=== PATIENT | female | born 1960 ===

== ENCOUNTER 2025-05-28 12:53 | Outpatient (AMB) | payer BC, SELFPAY ==
--- NOTE | 2025-05-28 13:00 | A.OFFPC_ITS ---
Vital Signs 05/28/25 13:06 Height 5 ft 5.43 in Weight 193 lb BMI 31.7 BP 138/68 Blood Pressure Location Lt brachial Position Sitting Respiration 20 Pulse 73 Pulse Source Pulse Oximeter Temp 97.4 F Temp Source Temporal Artery Scan Pulse Oximetry (%) 98 Oxygen Delivery Method Room Air Intake Visit Reasons: Annual Bag Tester Required: No Accompanied by: Self / Same As Patient Allergies No Known Allergies Allergy (Verified 05/28/25 13:02) Medication List - Last Reconciled 05/28/25 by Starr Colon MD amlodipine 10 mg PO DAILY lisinopril-hydrochlorothiazide 20-12.5 mg 1 tab PO DAILY multivitamin 1 tab PO DAILY Tobacco use date assessed: 05/28/25 Fall risk assessment: 1 Fall in past year Last assessed Fall Risk: 05/28/25 Dental Screening Dental Screen Date: 05/28/25 Did you have a dental visit in the last 12 months?: Yes Did you have a dental problem in the last 6 months where you did not have access to dental care?: No Was dental information given to patient?: Patient has dentist HPI HPI Comments History of Present Illness Details The patient is a 65-year-old female presenting for a physical examination Peripheral edema: Ankle swelling has persisted, frequent, without dietary sodium contribution, worsens with standing and elevation mitigates it sometimes. Essential Hypertension: compliant with meds Prediabetes: Borderline A1C recognized, treatment initiation deferred, results pending. Was previously prescribed metformin but did not take it. Has also been on GLP 1 in the past briefly but stopped because of worsened back pain when she tried medication. Osteoarthritis: Chronic bilateral knee pain, aggravated by activity and weight. Obesity- has gained weight, activity limited by pain from knees Fall (recent history): Recent fall due to missed step, associated with knee instability and discomfort. Social History: - Retired from management, currently in loss mitigation with [employer] - Resides on the second floor - Reports decreased work-related physica l activity Health Maintenance had hysterectomy colonoscopy due in 3 years Review of Systems - General: Reports recent fall - Cardiovascular: no chest pain - Musculoskeletal: Reports knee pain, es pecially in the morning and upon using stairs Physical Exam General: NAD HEENT: right ear cerumen impaction Chest: CTABL. Card: normal s1, s2, soft murmur across precordium Abd: SNTND, +BS Extremities: no edema Neuro: AOX3 Msk: bilateral knee crepitus Assessment and Plan 1. Peripheral edema - Monitor kidney function, medication re view. Obtain ultrasound bilaterally 2. Essential Hypertension - continue current regimen 3. Prediabetes - Lab tests for glucose, potential metfo rmin initiation and possible wegovy for weight loss 4. Osteoarthritis - Low-impact exercise advised, consider knee x-rays. Discussion Notes I discussed the management of multiple chronic conditions with the patient, emphasizing the importance of routine monitoring and lifestyle adjustments. Educational discussions around the benefits of low-impact exercises such as swimming or aqua aerobics were provided to support weight management and reduce knee pain. The patient is advised to watch for changes, especially in case of swollen ankles, or exacerbated knee pain, and to contact me with any concerns. Patient Instructions - Wear compression stockings during the day. - Follow a reduced-sodium diet to help m anage swelling. - Engage in low-impact exercises, swimmi ng if possible. - Follow up for a potential x-ray of the knees. - Portal me in three weeks regarding any medication side effects if wegovy is initiated. - Watch for new or worsening symptoms an d seek care if needed. [facility] Medical History (Updated 05/28/25 @ 17:35 by Starr Colon MD) Routine adult health maintenance Bilateral swelling of feet and ankles Obesity (BMI 30.0-34.9) Bilateral knee pain Impaired fasting glucose Primary hypertension Surgical History (Updated 05/28/25 @ 13:15 by Starr Colon MD) H/O: hysterectomy History of colonoscopy (~11/01/17) Family History (Updated 05/28/25 @ 13:15 by Starr Colon MD) Other Cancer Diabetes mellitus Social History Housing: House Patient Tobacco Use Status: Former Tobacco user Years Smoked: 15 years e-Cigarette/Vaping Use: Never Used Second Hand Smoke Exposure: No service: No Current occupational status: employed Current occupation: [employer] Questionnaire PHQ-9 Over the last 2 weeks, how often have you been bothered by any of the following problems? 1. Little interest or pleasure in doing things: not at all 2. Feeling down, depressed, or hopeless: not at all 3. Trouble falling or staying asleep, or sleeping too much: not at all 4. Feeling tired or having little energy: not at all 5. Poor appetite or overeating: not at all 6. Feeling bad about yourself - or that you are a failure or have let yourself or your family down: not at all 7. Trouble concentrating on things, such as reading the newspaper or watching television: not at all 8. Moving or speaking so slowly that other people could have noticed. Or the opposite - being so fidgety or restless that you have been moving around a lot more than usual: not at all 9. Thoughts that you would be better off or of hurting yourself in some way: not at all Total score: 0 Depression Screening Interpretation: Negative Depression Screening Done: Yes 52059 - PHQ-9 Billing: Yes Source: Developed by Drs. Chaim Mcdaniel, Sudha Keating, Ramses Haddad and colleagues, with an educational paxton from [employer]. Thrive Questionnaire Date Thrive assessed: 05/28/25 I am a: Patient What is your living situation today?: I have a steady place to live Within the past 12 months, did the food you bought not last and you didn't have the money to get more?: Never true Within the past 12 months, did you worry whether your food would run out before you got money to buy more?: Never true Do you have trouble paying for medicines?: No Do you have trouble getting transportation to medical appointments?: No Do you have trouble paying your heating and electricity bill?: No Do you have trouble taking care of your child, family member or friend?: No Do you have trouble with day-to-day activities such as bathing, preparing meals, shopping, managing finances, etc.?: No Are you currently unemployed and looking for a job?: No Are you interested in more education?: No Please select the resources that you would like help with: None THRIVE Score: 0 AUDIT C Alcohol Use Questionnaire (AUDIT-C) 1. How often do you have a drink containing alcohol?: 2-4 times a month 2. How many drinks containing alcohol do you have on a typical day when you are drinking?: 1 or 2 Total Score: 2 MARY-7 AMB Questionnaire MARY-7 Date MARY - 7 assessed: 05/28/25 Feeling nervous, anxious, or on edge: 0 = Not at all Not being able to stop or control worryin = Nearly every day (just life) Worrying too much about different things: 0 = Not at all Being so restless that it is hard to sit still: 0 = Not at all Becoming easily annoyed or irritable: 0 = Not at all Feeling afraid as if something awful might happen: 0 = Not at all Source: Developed by Drs. Chaim Mcdaniel, Sudha Keating, Ramses Haddad and colleagues, with an educational paxton from [employer]. Physical exam (Primary Care) Vital Signs: Last Vital Signs Temp 97.4 F 05/28/25 13:06 Pulse 73 05/28/25 13:06 Resp 20 05/28/25 13:06 BP 138/68 05/28/25 13:06 Pulse Ox 98 05/28/25 13:06 Oxygen Delivery Method Room Air 05/28/25 13:06 BMI result Body Mass Index 31.7 Tobacco/Smoking Status: Tobacco use Status Tobacco use date assessed 05/28/25 05/28/25 13:08 Patient Tobacco Use Status Former Tobacco user 05/28/25 13:08 e-Cigarette/Vaping Use Never Used 05/28/25 13:08 PHQ-9: PHQ-9 Score PHQ-9: Total score 0 05/28/25 14:00 Depression Screening Interpretation: Negative Thrive Assessment: Date of Thrive Assessment Date Thrive assessed 05/28/25 05/28/25 14:00 Coding Level of Care Code Est Pt Prev Care >65y(42679) Diagnoses Primary hypertension I10 Impaired fasting glucose R73.01 Chronic pain of both knees M25.561; M25.562; G89.29 Chronicity: chronic Obesity (BMI 30.0-34.9) E66.9 Bilateral swelling of feet and ankles M25.471; M25.472; M25.474; M25.475 Routine adult health maintenance Z00.00 Additional Codes PHQ-9 - 22124 - PHQ-9 Billing: Yes ([id number]) Assessment & Plan Assessment & Plan (1) Primary hypertension: Code(s): I10 - Essential (primary) hypertension Category: Medical (2) Impaired fasting glucose: Code(s): R73.01 - Impaired fasting glucose Category: Medical (3) Bilateral knee pain: Code(s): M25.561 - Pain in right knee; M25.562 - Pain in left knee Category: Medical Qualifiers: Chronicity: chronic Qualified Code(s): M25.561 - Pain in right knee; M25.562 - Pain in left knee; G89.29 - Other chronic pain (4) Obesity (BMI 30.0-34.9): Code(s): E66.9 - Obesity, unspecified Category: Medical Plan: trial of wegovy, cannot try phentermine due to HTN (5) Bilateral swelling of feet and ankles: Code(s): M25.471 - Effusion, right ankle; M25.472 - Effusion, left ankle; M25.474 - Effusion, right foot; M25.475 - Effusion, left foot Category: Medical (6) Routine adult health maintenance: Code(s): Z00.00 - Encounter for general adult medical examination without abnormal findings Category: Medical Plan - Advise weight management, arthritis-friendly activities. - Conduct fasting labs, consider metformin initiation. - Recommend knee x-ray, use compression stockings. Orders: Orders Microalbumin, Random (w Creat) Today I10 - Essential (primary) hypertension, R73.01 - Impaired fasting glucose XR Knee Binu 3V Today M25.561 - Pain in right knee, M25.562 - Pain in left knee Pneumococcal 20 Immunization Today Z23 - Encounter for immunization Hemoglobin A1c Today I10 - Essential (primary) hypertension, R73.01 - Impaired fasting glucose Complete Blood Count Auto Diff Today I10 - Essential (primary) hypertension, R73.01 - Impaired fasting glucose Comprehensive Met. Panel Today I10 - Essential (primary) hypertension, R73.01 - Impaired fasting glucose US venous duplex LE BI Today M25.471 - Effusion, right ankle, M25.472 - Effusion, left ankle, M25.474 - Effusion, right foot, M25.475 - Effusion, left foot Medications: New pneumoc 20-randy conj-dip cr(PF) 0.5 mL IM ONCE 0.5 mL 0RF Z23 - Encounter for immunization semaglutide (weight loss) (Wegovy) administer weeks 1 through 4 of therapy 0.25 mg (0.5 mL) subcut QWEEK 2 mL 1RF
[2025-05-28 13:06] VITALS: BP 138/68; PULSE 73; RESP 20; TEMP 36.3; O2SAT 98; BMI 31.7
--- OUTSIDE RECORDS SUMMARY | 2025-05-28 15:36 | XMS_ITS | Encounter Summary ---
Author Organization [facility] Address [address] [place] [address] Care Team Providers Care Rug Setter Axminster Name Role Phone Starr Colon MD Primary Care Provider +1- [phone] Encounter Details Date Type Department Care Team (Latest Contact Info) Description 10/16/2024 Lab Requisition [facility] - Main Lab [address] [place] [address] Karolina Pickett MD [address] [phone] Encounter for gynecological examination (general) (routine) without abnormal findings Social History Tobacco Use Types Packs/Day Years Used Date Smoking Tobacco: Never Assessed Comments Unknown Sex and Gender Information Value Date Recorded Sex Assigned at Not on file Legal Sex Female 1:04 PM EST Gender Identity Not on file Sexual Orientation Not on file documented as of this encounter Plan of Treatment Not on file documented as of this encounter Procedures Procedure Name Priority Date/Time Associated Diagnosis Comments PAP SMEAR Routine 10/15/2024 12:00 AM EDT Encounter for gynecological examination (general) (routine) without abnormal findings documented in this encounter Results * Pap smear (10/15/2024 12:00 AM EDT) Interpretation Negative for intraepithelial lesion or malignancy 10/17/2024 3:57 PM EDT [facility] General Categorization Negative 10/17/2024 3:57 PM EDT [facility] Specimen Adequacy Satisfactory for evaluation 10/17/2024 3:57 PM EDT [facility] Pap Methodology Liquid Based Pap Test 10/17/2024 3:57 PM EDT [facility] Disclaimer The Pap test is a screening test which carries an inherent false negative rate. These test results should be correlated with the patient's clinical findings and history. This Pap test was processed using an automated screening system. Technical cytopathology services provided by [facility], at [address] [place] [address] (CLIA # [id number]/Meena Molina MD, Supervisor Stripping.) 10/17/2024 3:57 PM EDT [facility] Console Pap Interpretation Reported 10/17/2024 3:57 PM T [facility] Brushing/Spatula Vaginal structure / Unknown 10/15/2024 10/16/2024 7:38 AM EDT us Karolina Pickett MD LAB CYTOLOGY ORDERABLES Final Result [facility] [address] [place] [address], documented in this encounter Visit Diagnoses Diagnosis Encounter for gynecological examination (general) (routine) without abnormal findings documented in this encounter Care Teams Rug Setter Axminster Relationship Specialty Start Date End Date Starr Colon MD [address] [place] [address] PCP - General Internal Medicine 10/16/24 documented as of this encounter
--- OUTSIDE RECORDS SUMMARY | 2025-05-28 15:36 | XMS_ITS | Clinical Summary ---
Author Organization [address] Address [address] [place] [phone] Phone Care Team Providers Care Health Sciences Program Coordinator Name Role Phone Starr Colon MD Primary Care Provider +1- [phone] Surgical History Surgery Date Site/Laterality Comments HYSTERECTOMY Social History Tobacco Use Types Packs/Day Years Used Date Smoking Tobacco: Never Assessed Comments No Sex and Gender Information Value Date Recorded Sex Assigned at Not on file Legal Sex Female 1:04 PM EST Gender Identity Not on file Sexual Orientation Not on file Obstetrics History Para Term AB IAB SAB Ectopic Multiple Livin g Live Births 3 Last Filed Vital Signs Vital Sign Reading Time Taken Comments Blood Pressure - - Pulse - - Temperature - - Respiratory Rate - - Oxygen Saturation - - Inhaled Oxygen Concentration - - Weight 88.9 kg (196 lb) 10/17/2024 7:28 AM EDT Height 166.4 cm (5' 5.5 ) 10/17/2024 7:28 AM EDT Body Mass Index 32.12 10/17/2024 7:28 AM EDT Plan of Treatment Health Maintenance Due Date Last Done Comments Colorectal Cancer Screening: Colonoscopy 1960 Pneumococcal Vaccine: 50+ Years (1 of 1 - PCV) 2009 Zoster Vaccines (1 of 2) 2009 Cholesterol Screening (Lipid Panel) 06/21/2022 Hepatitis C Screening 06/21/2022 Osteoporosis Screening (Bone Density Screening) 06/21/2022 Social Influencers of Health Screening 06/21/2022 Falls Risk Assessment 2024 Depression Screening 07/24/2024 Hypertension/CHF/CAD Annual BMP Blood Test 10/17/2024 COVID-19 Vaccine (5 - 2025-26 season) 2025 02/03/2022, 06/01/2021, 11/17/2020, Additional history exists Influenza Vaccine (#1) 2025 , 05/20/2021, 04/23/2020, Additional history exists DTaP,Tdap,and Td Vaccines (2 - Td or Tdap) 04/15/2025 04/15/2015 Breast Cancer Screening 10/17/2026 10/18/19 25, 07/20/2023, 07/14/2022, Additional history exists RSV Immunization Adult Patients (1 - 1-dose 75+ series) 2034 HIB Vaccines Aged Out No longer eligi ble based on patient's age to complete this topic HPV Vaccines Aged Out No longer eligi ble based on patient's age to complete this topic Hepatitis A Vaccines Aged Out No long er eligible based on patient's age to complete this topic Hepatitis B Vaccines Aged Out No long er eligible based on patient's age to complete this topic IPV Vaccines Aged Out No longer eligi ble based on patient's age to complete this topic MMR Vaccines Aged Out No longer eligi ble based on patient's age to complete this topic Meningococcal ACWY Vaccine Aged Out N o longer eligible based on patient's age to complete this topic Meningococcal B Vaccine Aged Out No l onger eligible based on patient's age to complete this topic RSV Immunization Patients Under 20 months Aged Out No longer eligible based on patient's age to complete this topic Varicella Vaccines Aged Out No longer eligible based on patient's age to complete this topic Procedures Procedure Name Priority Date/Time Associated Diagnosis Comments MG MAMMO DIGITAL SCREENING W GILES BILAT Routine 10/17/2024 7:35 AM EDT Encounter for screening mammogram for malignant neoplasm of breast from Last 3 Months or Most Recently Relevant to Health Maintenance Results * MG Mammo Digital Screening w Giles bilat (10/17/2024 7:35 AM EDT) Anatomical Region Laterality Modality Breast Bilateral Mammography 10/22/2024 3:14 PM EDT Impressions 10/22/2024 3:17 PM EDT No evidence of breast malignancy. BI-RADS CATEGORY: 1 - NEGATIVE RECOMMENDATION: Screening bilateral mammogram is recommended in 1 year. [facility]ammo Location: [facility], [address] [place] [address], [id number], . -------- FINAL REPORT -------- Dictated By: Nithya Mccarty Dictated Date: 10/22/2024 15:14 ET Assigned Physician: Nithya Mccarty Reviewed and Electronically Signed By: Nithya Mccarty Signed Date: 10/22/2024 15:17 ET Workstation ID: [id number] Transcribed By: Self Edit Transcribed Date: 10/22/2024 15:14 ET Narrative 10/22/2024 3:17 PM EDT CLINICAL: 64 years old, Female, routine annual exam. COMPARISON: 07/19/2023, 07/14/2022, 12/25/2020 and 08/24/2018 TECHNIQUE: Bilateral MLO and CC views were obtained digitally with 3-D mammogram (digital breast tomosynthesis). Computer-aided detection was utilized in evaluation of this exam (CAD). FINDINGS: There is no evidence of suspicious mass or architectural distortion. No worrisome calcifications are evident. There has been no significant change from prior exam(s). Stable bilateral asymmetries. BREAST DENSITY: B - There are scattered areas of fibroglandular density. Procedure Note Nithya Mccarty MD - 10/22/2024 CLINICAL: 64 years old, Female, routine annual exam. COMPARISON: 07/19/2023, 07/14/2022, 12/25/2020 and 08/24/2018 TECHNIQUE: Bilateral MLO and CC views were obtained digitally with 3-Dmammogram (digital breast tomosynthesis). Computer-aided detection wasutilized in evaluation of this exam (CAD). FINDINGS: There is no evidence of suspicious mass or architectural distortion. Noworrisome calcifications are evident. There has been no significantchange from prior exam(s). Stable bilateral asymmetries. BREAST DENSITY: B - There are scattered areas of fibroglandular density. IMPRESSION: No evidence of breast malignancy. BI-RADS CATEGORY: 1 - NEGATIVE RECOMMENDATION: Screening bilateral mammogram is recommended in 1 year. [facility]ammo Location: [facility], [address] [place] [address], [id number], . -------- FINAL REPORT -------- Dictated By: Nithya Mccarty Dictated Date: 10/22/2024 15:14 ET Assigned Physician: Nithya Mccarty Reviewed and Electronically Signed By: Nithya Mccarty Signed Date: 10/22/2024 15:17 ET Workstation ID: [id number] Transcribed By: Self Edit Transcribed Date: 10/22/2024 15:14 ET us Karolina Pickett MD IMG BI PROCEDURES Final Result from Last 3 Months or Most Recently Relevant to Health Maintenance Insurance MEDICARE [facility] Care Teams Health Sciences Program Coordinator Relationship Specialty Start Date End Date Starr Colon MD [facility] [place] [place] [address] PCP - General Internal Medicine 10/16/24
== END 2025-05-28 14:01 | disposition home or self-care (01) ==
LOC: HO.HMCHD 12:54
PROVIDERS: PCP Internal Medicine; Visit Provider Internal Medicine
DX: Z00.00 Encounter for general adult medical examination without abnormal findings (principal); I10 Essential (primary) hypertension; E66.9 Obesity, unspecified; Z68.1 Body mass index [BMI] 19.9 or less, adult; R73.01 Impaired fasting glucose; M25.561 Pain in right knee; M25.562 Pain in left knee; G89.29 Other chronic pain; M25.471 Effusion, right ankle; M25.472 Effusion, left ankle; M25.474 Effusion, right foot; M25.475 Effusion, left foot

== ENCOUNTER → 2025-05-28 12:53 | Outpatient (BNVA) | payer BC, SELFPAY | PROVIDERS: PCP Internal Medicine; Visit Provider Internal Medicine | DX: Z00.00 Encounter for general adult medical examination without abnormal findings (principal); I10 Essential (primary) hypertension; R73.01 Impaired fasting glucose; M25.561 Pain in right knee; M25.562 Pain in left knee; E66.9 Obesity, unspecified; Z68.31 Body mass index [BMI] 31.0-31.9, adult; M25.471 Effusion, right ankle; M25.472 Effusion, left ankle; M25.474 Effusion, right foot; M25.475 Effusion, left foot; Z13.31 Encounter for screening for depression | CPT/HCPCS: 96127 ==

== ENCOUNTER 2025-05-29 06:52 | Outpatient (REF) | payer BC, SELFPAY ==
--- OUTSIDE RECORDS SUMMARY | 2025-05-29 06:56 | XMS_ITS | Encounter Summary ---
Author Organization [facility] Address [address] [place] [address] Care Team Providers Care Clinical Trial Educator Name Role Phone Starr Colon MD Primary Care Provider +1- [phone] Encounter Details Date Type Department Care Team (Latest Contact Info) Description 10/16/2024 Lab Requisition [facility] - Main Lab [address] [place] [address] Karolina Pickett MD [address] [phone] Encounter for gynecological examination (general) (routine) without [...] lesion or malignancy 10/17/2024 3:57 PM EDT [facility] ([facility]) [facility] General Categorization Negative 10/17/2024 3:57 PM EDT [facility] Specimen Adequacy Satisfactory for evaluation 10/17/2024 3:57 PM EDT [facility] Pap Methodology Liquid Based Pap Test 10/17/2024 3:57 PM EDT [facility] Disclaimer The Pap test is a screening test which carries an inherent false negative rate. These test results should be correlated with the patient's clinical findings and history. This Pap test was processed using an automated screening system. Technical cytopathology services provided by [facility], at [address] [place] [address] (CLIA # [id number]/Meena Molina MD, Kettle Cook.) 10/17/2024 3:57 PM EDT [facility] Console Pap Interpretation Reported 10/17/2024 3:57 PM T [facility] Brushing/Spatula Vaginal structure / Unknown 10/15/2024 10/16/2024 7:38 AM EDT us Karolina Pickett MD LAB CYTOLOGY ORDERABLES Final Result [facility] [address] [place] [address], documented in this encounter Visit Diagnoses Diagnosis Encounter for gynecological examination (general) (routine) without abnormal findings documented in this encounter Care Teams Clinical Trial Educator Relationship Specialty Start Date End Date Starr Colon MD [address] [place] [address] PCP - General Internal Medicine 10/16/24 documented as of this encounter
--- OUTSIDE RECORDS SUMMARY | 2025-05-29 06:56 | XMS_ITS | Clinical Summary ---
Author Organization [address] Address [address] [place] [phone] Phone Care Team Providers Care Scalemaker Name Role Phone Starr Colon MD Primary Care Provider +1- [phone] Surgical History Surgery Date Site/Laterality Comments HYSTERECTOMY [...] year. Mammo Location: [facility], [address] [place] [address], [phone], . -------- FINAL REPORT -------- Dictated By: Nithya Mccarty Dictated Date: 10/22/2024 15:14 ET Assigned Physician: Nithya Mccarty Reviewed and Electronically Signed By: Nithya Mccarty Signed Date: 10/22/2024 15:17 ET Workstation ID: [id number] Transcribed By: Self Edit Transcribed Date: 10/22/2024 [...] year. Mammo Location: [facility], [address] [place] [address], [id number], . -------- FINAL REPORT -------- Dictated By: Nithya Mccarty Dictated Date: 10/22/2024 15:14 ET Assigned Physician: Nithya Mccarty Reviewed and Electronically Signed By: Nithya Mccarty Signed Date: 10/22/2024 15:17 ET Workstation ID: [id number] Transcribed By: Self Edit Transcribed Date: 10/22/2024 15:14 ET us Karolina Pickett MD IMG BI PROCEDURES Final Result from Last 3 Months or Most Recently Relevant to Health Maintenance Insurance MEDICARE [facility] Care Teams Scalemaker Relationship Specialty Start Date End Date Starr Colon MD [facility] [place] [address] PCP - General Internal Medicine 10/16/24
[2025-05-29 10:12] LABS: MANUAL DIFF FLAG NO
[2025-05-29 10:43] LABS: Hematocrit 38.5 % (37.0-47.0); Hemoglobin 12.3 g/dl (12.0-16.0); Imm Gran Abs Auto 0.03 X10*3/uL (0.00-0.03); Imm Gran Pct Auto 0.4 % (0.0-0.4); Lymphocytes Absolute Auto 2.3 X10*3/uL (1.2-4.9); Mean Corpuscular HGB Conc 31.9 g/dl (31.0-35.0); Mean Corpuscular Hemoglobin 28.1 pg (27.0-33.0); Mean Corpuscular Volume 88.1 fL (80.0-98.0); NRBC Abs Auto 0.000 X10*3/uL (0.0-0.012); NRBC Pct Auto 0.0 /100WBC (0.0-0.2); Platelet Count 301 X10*3/uL (160-400); Red Blood Count 4.37 X10*6/uL (4.20-5.50); White Blood Count 7.1 X10*3/uL (4.8-10.8)
[2025-05-29 11:14] LABS: Alanine Aminotransferase 25 U/L (0-31); Albumin Level 4.3 g/dL (3.5-5.0); Alkaline Phosphatase 84 U/L (39-117); Anion Gap 11 (12-20); Aspartate Amino Transferase 23 U/L (5-31); Blood Urea Nitrogen 17 mg/dL (9-16); Calcium 9.7 mg/dL (8.4-10.2); Carbon Dioxide 28 mmol/L (22-29); Chloride 106 mmol/L (96-108); Estimated Glomerular Filt Rate > 60; Potassium 3.6 mmol/L (3.3-5.1); Sodium 141 mmol/L (135-145); Total Protein 7.3 g/dL (6.5-8.0)
[2025-05-29 11:24] LABS: Microalbum/Creatinine Ratio Ur 3.8 ug/mg cr (<30)
== END 2025-05-29 06:53 | disposition home or self-care (01) ==
LOC: HO.HMGCLDS 06:52
PROVIDERS: PCP Internal Medicine; Visit Provider Internal Medicine
DX: I10 Essential (primary) hypertension (principal); R73.01 Impaired fasting glucose
CPT/HCPCS: 36415; 80053; 82043; 82570; 83036; 85025

== ENCOUNTER 2025-06-02 15:04 | Outpatient (REF) | payer BC, SELFPAY ==
--- NOTE | ~2025-06-02 | XR_ITS ---
Exam: X-ray, bilateral knees.XR KNEE 3 VIEWS BILATERAL TECHNIQUE: Three views lower extremity joint, bilateral knees INDICATION: bilateral knee pain COMPARISON: None available. FINDINGS: RIGHT KNEE: There is subtle narrowing of the medial joint space. There is a joint effusion. There is an enthesophyte of quadriceps attachment on patella and patellar tendon attachment to tibial tuberosity. Intercondylar tubercles are peaked. Marginal osteophytes are visible along the medial joint line, and patella. LEFT KNEE: There is a joint effusion. There is enthesophyte at the quadriceps attachment on patella. There are marginal osteophytes involving patella, posterior tibial plateau, and medial joint line. There is questionable narrowing of the medial compartment. XR/XR Knee Binu 3V IMPRESSION: Right knee: Mild osteoarthritis with a joint effusion Left knee: Mild osteoarthritis with a joint effusion. Electronically signed by: Juve Moya MD 06/02/2025 04:23 PM KEVAN
--- NOTE | ~2025-06-02 | US_ITS ---
EXAMINATION: US TRIPLEX LOWER EXTREMITY, BILATERAL CLINICAL INFORMATION: Effusion right ankle, rule out DVT COMPARISON: None available. TECHNIQUE: Color-flow triplex imaging with spectral analysis and compression Doppler were performed on the bilateral lower extremities. FINDINGS: Respiratory variation, normal compression and augmented flow are noted throughout the bilateral lower extremities. The visualized common femoral vein, superficial femoral vein, profunda femoral vein, popliteal vein and midcalf peroneal and posterior tibial venous segments show no evidence of deep venous thrombosis bilaterally. There is no Blair's cyst. US/US venous duplex LE BI IMPRESSION: No evidence of deep venous thrombosis involving the bilateral lower extremities. Electronically signed by: Marco Ledezma MD 06/02/2025 04:15 PM EST
--- OUTSIDE RECORDS SUMMARY | 2025-06-02 17:16 | XMS_ITS | Clinical Summary ---
Author Organization [address] Address [address] [place] [phone] Phone Care Team Providers Care Blood Bank Laboratory Technician Name Role Phone Starr Colon MD Primary Care Provider +1- [phone] Surgical History Surgery Date Site/Laterality Comments HYSTERECTOMY [...] year. Mammo Location: [facility], [address] [place] [address], [id number], . -------- FINAL REPORT -------- Dictated By: Nithya Mccarty Dictated Date: 10/22/2024 15:14 ET Assigned Physician: Nithya Mccarty Reviewed and Electronically Signed By: Nithya Mccarty Signed Date: 10/22/2024 15:17 ET Workstation ID: [id number] Transcribed By: Self Edit Transcribed Date: 10/22/2024 [...] year. Mammo Location: [facility], [address] [place] [address], [phone], . -------- FINAL REPORT -------- Dictated By: Nithya Mccarty Dictated Date: 10/22/2024 15:14 ET Assigned Physician: Nithya Mccarty Reviewed and Electronically Signed By: Nithya Mccarty Signed Date: 10/22/2024 15:17 ET Workstation ID: [id number] Transcribed By: Self Edit Transcribed Date: 10/22/2024 15:14 ET us Karolina Pickett MD IMG BI PROCEDURES Final Result from Last 3 Months or Most Recently Relevant to Health Maintenance Insurance MEDICARE [facility] Care Teams Blood Bank Laboratory Technician Relationship Specialty Start Date End Date Starr Colon MD [facility] [place] [address] PCP - General Internal Medicine 10/16/24
--- OUTSIDE RECORDS SUMMARY | 2025-06-02 17:16 | XMS_ITS | Encounter Summary ---
Author Organization [facility] Address [address] [place] [address] Care Team Providers Care Aviation Maintenance Technician Name Role Phone Starr Colon MD Primary Care Provider +1- [phone] Encounter Details Date Type Department Care Team (Latest Contact Info) Description 10/16/2024 Lab Requisition [facility] - Main Lab [address] [place] [address] Karolina Pickett MD [address] [phone] Encounter for gynecological examination (general) (routine) without [...] lesion or malignancy 10/17/2024 3:57 PM EDT [facility] General Categorization Negative 10/17/2024 3:57 PM EDT [facility] Specimen Adequacy Satisfactory for evaluation 10/17/2024 3:57 PM EDT [facility] Pap Methodology Liquid Based Pap Test 10/17/2024 3:57 PM EDT [facility] Disclaimer The Pap test is a screening test which carries an inherent false negative rate. These test results should be correlated with the patient's clinical findings and history. This Pap test was processed using an automated screening system. Technical cytopathology services provided by [facility], at [address] [place] [address] (CLIA # [id number]/Meena Molina MD, Golf Coach.) 10/17/2024 3:57 PM EDT [facility] Console Pap Interpretation Reported 10/17/2024 3:57 PM T [facility] Brushing/Spatula Vaginal structure / Unknown 10/15/2024 10/16/2024 7:38 AM EDT us Karolina Pickett MD LAB CYTOLOGY ORDERABLES Final Result [facility] [address] [place] [address], documented in this encounter Visit Diagnoses Diagnosis Encounter for gynecological examination (general) (routine) without abnormal findings documented in this encounter Care Teams Aviation Maintenance Technician Relationship Specialty Start Date End Date Starr Colon MD [address] [place] [address] PCP - General Internal Medicine 10/16/24 documented as of this encounter
== END 2025-06-02 15:05 | disposition home or self-care (01) ==
LOC: HO.US 15:04
PROVIDERS: PCP Internal Medicine; Visit Provider Internal Medicine
DX: M25.471 Effusion, right ankle (principal); M25.472 Effusion, left ankle; M25.474 Effusion, right foot; M25.475 Effusion, left foot; M25.561 Pain in right knee; M25.562 Pain in left knee
CPT/HCPCS: 73562; 93970

== ENCOUNTER → 2025-06-02 15:06 | Outpatient (BNV) | payer BC, SELFPAY | PROVIDERS: PCP Internal Medicine; Visit Provider Radiology Diagnostic Ultrasound | DX: M25.471 Effusion, right ankle (principal); M17.0 Bilateral primary osteoarthritis of knee; M25.461 Effusion, right knee; M25.462 Effusion, left knee | CPT/HCPCS: 73562; 93970 ==

== ENCOUNTER 2025-06-09 14:10 | Outpatient (AMB) | payer BC, SELFPAY ==
--- NOTE | 2025-06-09 14:12 | MHC.OFFVIS ---
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 Patient was seen by her PCP who ordered x-rays and referred to orthopedics. Today patient reports her pain has been present for a while with her right knee being the worse. States constant pain that is located at the anterior aspect of knee. No previous treatment. Finds some relief with Tylenol. Allergies No Known Allergies Allergy (Verified 06/09/25 14:18) Medication List - Last Reconciled 06/09/25 by Ravin Chen PA-C amlodipine 10 mg PO DAILY lisinopril-hydrochlorothiazide 20-12.5 mg 1 tab PO DAILY metformin ER (Glucophage XR) 500 mg PO DAILY multivitamin 1 tab PO DAILY semaglutide (weight loss) (Wegovy) 0.25 mg (0.5 mL) subcut QWEEK HPI HPI CUSTOMER DEVELOPMENT MANAGER-Bilat knee pain: Details: 65-year-old female presents to the office today for bilateral knee pain. She is experiencing pain in both knees which is located primarily along the anterior portion of the knee. She has discomfort with going up and downstairs. She has had no treatments to date. [facility] Medical History (Updated 06/09/25 @ 14:28 by Ravin Chen PA-C) Routine adult health maintenance Bilateral swelling of feet and ankles Obesity (BMI 30.0-34.9) Bilateral knee pain Impaired fasting glucose Primary hypertension Surgical History H/O: hysterectomy History of colonoscopy (~11/01/17) Family History (Updated 05/28/25 @ 13:15 by Starr Colon MD) Other Cancer Diabetes mellitus Social History Housing: House Patient Tobacco Use Status: Former Tobacco user Years Smoked: 15 years e-Cigarette/Vaping Use: Never Used Second Hand Smoke Exposure: No service: No Current occupational status: employed Current occupation: [employer] Review of Systems Const All systems reviewed & are unremarkable except as noted in HPI and below Physical Exam Vital Signs: BMI result Body Mass Index 32.1 Const General: cooperative and no acute distress Orientation/consciousness: patient oriented x3 Resp Effort & Inspection: normal respiratory effort and able to speak in complete sentences Cardio Peripheral pulses: Peripheral pulses 2+ throughout Neuro General: patient oriented x3 Extrem Other: Bilateral knees are normal to inspection. She has full range of motion with crepitus. Mild tenderness to palpation along the medial joint line bilaterally. Calf supple nontender neurovascularly intact. Results Reviewed Results Reviewed: X-rays of both knees obtained on 06/02/2025 show mild medial compartment arthritis with patellofemoral arthritis Assessment & Plan Assessment & Plan (1) Osteoarthritis of knees, bilateral: Code(s): M17.0 - Bilateral primary osteoarthritis of knee Category: Medical Plan: We discussed options today which includes physical therapy and anti-inflammatory use. A prescription for Celebrex was sent to her pharmacy to take twice a day for 2 weeks and then p.r.n. thereafter. She was also given an order for physical therapy and she will call to make an appointment. If symptoms persist or worsen she can contact our office to discuss steroid injection otherwise she will follow up as needed. Orders: Orders PT Evaluation and Treatment Today M17.0 - Bilateral primary osteoarthritis of knee Medications: New celecoxib (Celebrex) 200 mg PO BID 60 caps 3RF 30 days Coding Level of Care Code New Pt Level 3 (85666) Complex EM visit Add On G2211 Diagnoses Osteoarthritis of knees, bilateral M17.0
[2025-06-09 14:18] VITALS: BMI 32.1
--- OUTSIDE RECORDS SUMMARY | 2025-06-10 03:55 | XMS_ITS | Clinical Summary ---
Author Organization [address] Address [address] [place] [phone] Phone Care Team Providers Care Business Project Manager Name Role Phone Starr Colon MD Primary Care Provider +1- [phone] Surgical History Surgery Date Site/Laterality Comments HYSTERECTOMY [...] year. Mammo Location: [facility], [address] [place] [address], [phone], . -------- FINAL REPORT -------- Dictated By: Nithya Mccarty Dictated Date: 10/22/2024 15:14 ET Assigned Physician: Nithya Mccarty Reviewed and Electronically Signed By: Nithya Mccarty Signed Date: 10/22/2024 15:17 ET Workstation ID: [id number] Transcribed By: Self Edit Transcribed Date: 10/22/2024 [...] year. Mammo Location: [facility], [address] [place] [address], [phone], . -------- FINAL REPORT -------- Dictated By: Nithya Mccarty Dictated Date: 10/22/2024 15:14 ET Assigned Physician: Nithya Mccarty Reviewed and Electronically Signed By: Nithya Mccarty Signed Date: 10/22/2024 15:17 ET Workstation ID: [id number] Transcribed By: Self Edit Transcribed Date: 10/22/2024 15:14 ET us Karolina Pickett MD IMG BI PROCEDURES Final Result from Last 3 Months or Most Recently Relevant to Health Maintenance Insurance MEDICARE [facility] Care Teams Business Project Manager Relationship Specialty Start Date End Date Starr Colon MD [facility] [place] [address] PCP - General Internal Medicine 10/16/24
--- OUTSIDE RECORDS SUMMARY | 2025-06-10 03:55 | XMS_ITS | Encounter Summary ---
Author Organization [facility] Address [address] [place] [address] Care Team Providers Care Biology Specialist Name Role Phone Starr Colon MD Primary Care Provider +1- [phone] Encounter Details Date Type Department Care Team (Latest Contact Info) Description 10/16/2024 Lab Requisition [facility] - Main Lab [address] [place] [address] Karolina Pickett MD [address] [phone] Encounter for gynecological examination (general) (routine) without [...] lesion or malignancy 10/17/2024 3:57 PM EDT [facility] ([facility]) [facility] General Categorization Negative 10/17/2024 3:57 PM EDT [facility] Specimen Adequacy Satisfactory for evaluation 10/17/2024 3:57 PM EDT [facility] Pap Methodology Liquid Based Pap Test 10/17/2024 3:57 PM EDT [facility] Disclaimer The Pap test is a screening test which carries an inherent false negative rate. These test results should be correlated with the patient's clinical findings and history. This Pap test was processed using an automated screening system. Technical cytopathology services provided by [facility], at [address] [place] [address] (CLIA # [id number]/Meena Molina MD, Sole Blacker.) 10/17/2024 3:57 PM EDT [facility] Console Pap Interpretation Reported 10/17/2024 3:57 PM T [facility] Brushing/Spatula Vaginal structure / Unknown 10/15/2024 10/16/2024 7:38 AM EDT us Karolina Pickett MD LAB CYTOLOGY ORDERABLES Final Result [facility] [address] [place] [address], documented in this encounter Visit Diagnoses Diagnosis Encounter for gynecological examination (general) (routine) without abnormal findings documented in this encounter Care Teams Biology Specialist Relationship Specialty Start Date End Date Starr Colon MD [address] [place] [address] PCP - General Internal Medicine 10/16/24 documented as of this encounter
== END 2025-06-09 15:41 | disposition home or self-care (01) ==
LOC: HO.HOS 14:10
PROVIDERS: PCP Internal Medicine; Visit Provider Physician Assistant
DX: M17.0 Bilateral primary osteoarthritis of knee (principal)
CPT/HCPCS: 99203